=== PATIENT | female | born 1965 | race American Indian/Alaskan Native ===

== ENCOUNTER 2017-06-19 13:14 | Outpatient (CLI) | payer MEDICARE, MEDICAID ==
--- NOTE | 2017-06-19 14:37 | Cat Scan Report ---
CT ABDOMEN AND PELVIS WITHOUT CONTRAST INDICATION: Disorders of urethra. COMPARISON: 05/02/[address] FINDINGS: Noncontrast abdomen and pelvis CT performed. LUNG BASES: Subtle right lower lung pneumatoceles, the largest approximately 7 mm partially imaged, axial image 1, series 2. ABDOMEN: Please note that sensitivity to detect small visceral lesions is limited due to the absence of intravenous or oral contrast. Cholecystectomy clips. Left hepatic lobe tip extends into the left upper quadrant. Otherwise grossly unremarkable unenhanced liver, spleen, pancreas, right adrenal, nonaneurysmal abdominal aorta, IVC and kidneys. Approximately 5 mm hypodense nodule along the lateral limb of the left adrenal on axial image 129, series 2, presumably an adenoma. No ascites or significant adenopathy. Nonopacified GI tract evaluation limited, though grossly nonobstructive. Normal appendix with a nonspecific 3 mm calcification at its cecal attachment, axial image 265, series 2, possibly an appendicolith, though not definitively seen previously. PELVIS: Uterus, adnexa/ovaries, urinary bladder and the rectosigmoid now within normal limits. No free fluid or significant adenopathy. Stable small calcifications near the bladder base not excluded periurethral as on axial images 355-362, 5 in number with the largest approximately 4 mm, axial image 358. Multilevel spinal degenerative spurring, greatest lower thoracic and mid lumbar. Mild bilateral hip degenerative changes/acetabular spurring as well. CONCLUSION: 1. Interval resolution of left ovarian cyst with now physiologic adnexal/ovarian CT appearance, as described. 2. Other findings as cholecystectomy clips and few small, stable nonspecific calcifications aggregated about the bladder base, as detailed above. Please correlate. Thank you for the opportunity to participate in this patient's care.
--- NOTE | 2017-06-21 11:37 | Magnetic Resonance Report ---
MRI PELVIS WITHOUT CONTRAST: 06/19/17 13:14:00 CLINICAL: Urethral diverticulum. COMPARISON :A same-day CT Pelvis without contrast TECHNIQUE: Sagittal, coronal and axial T1 and T2 fat sat sequences without contrast on a 1.5 [place] magnet. FINDINGS: Posterior and left posterolateral periurethral T2 hyperintense fluid signal correlates with same area as three periurethral calcifications on the CT. This fluid signal measures approximately 1.5 x 1.5 x 1.0 cm. A single tiny round hypointense object is identified on sagittal and coronal sequences and there is suggestion of 2 hypointense posterior dependent hypointense objects which would correlate with tiny calculi. The urinary bladder is normal. A normal uterus measures 9.7 x 4.3 x 4.4 cm. The endometrium is mildly thickened and measures 12 mm. An 8mm nabothian cysts of the cervix. The ovaries are normal with tiny follicles in each ovary. The largest follicle is on the right and measures 1.4 cm. Normal rectum and sigmoid colon. No free pelvic fluid or lymphadenopathy. Vascular structures are normal. The bones and soft tissues are normal. 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 The urethra is otherwise normal and the urinary bladder is normal. Normal uterus and ovaries.
== END 2017-06-19 13:15 | disposition home or self-care (01) ==
LOC: CT 13:14
PROVIDERS: ATTEND Urology
DX: N36.1 Urethral diverticulum (principal); N36.8 Other specified disorders of urethra; N88.8 Other specified noninflammatory disorders of cervix uteri; J98.4 Other disorders of lung; E27.8 Other specified disorders of adrenal gland; M17.0 Bilateral primary osteoarthritis of knee; M53.85 Other specified dorsopathies, thoracolumbar region; Z90.49 Acquired absence of other specified parts of digestive tract
CPT/HCPCS: 72195; 74176